=== PATIENT | female | born 1950 | race Caucasian/White ===

== ENCOUNTER → 2017-07-19 | Outpatient (CLI) | payer OTHER ==
[~2017-07-19] MED LIST: ATENOLOL 25MG T25 MG OR; FISHOIL; MAXIDE OR; MAXZIDE-25 MG1 EACH OR; PRILOSEC 20 MG20 MG OR; PROZAC 10 MG CA10 M1 OR; SLO-NIACIN250 MG OR; VITAMIN E400 UNIT OR; [UNRECOGNIZED DRUG - OTHER] OR
== END ==
LOC: RAD 00:24
DX: Z12.31 Encounter for screening mammogram for malignant neoplasm of breast (principal)

== ENCOUNTER → 2017-07-20 | Outpatient (CLI) | payer OTHER | LOC: ULTRA 11:27 | DX: N63.13 Unspecified lump in the right breast, lower outer quadrant (principal) ==

== ENCOUNTER → 2018-01-24 | Outpatient (CLI) | payer OTHER | LOC: RAD 01:09 | DX: N63.11 Unspecified lump in the right breast, upper outer quadrant (principal) ==

== ENCOUNTER → 2018-07-11 | Outpatient (CLI) | payer OTHER | LOC: RAD 09:41 | DX: R92.1 Mammographic calcification found on diagnostic imaging of breast (principal); R92.2 Inconclusive mammogram; R92.8 Other abnormal and inconclusive findings on diagnostic imaging of breast ==

== ENCOUNTER → 2019-07-20 | Outpatient (CLI) | payer OTHER | LOC: RAD 09:16 → BC 21:09 | DX: Z12.31 Encounter for screening mammogram for malignant neoplasm of breast (principal) ==

== ENCOUNTER → 2020-07-22 | Outpatient (CLI) | payer OTHER | LOC: BC 08:30 | PROVIDERS: ATTEND Family Medicine | DX: Z12.31 Encounter for screening mammogram for malignant neoplasm of breast (principal) ==

== ENCOUNTER → 2021-01-29 | Outpatient (CLI) | payer OTHER | LOC: RAD 12:28 | PROVIDERS: ATTEND Family Medicine | DX: N63.20 Unspecified lump in the left breast, unspecified quadrant (principal); R92.8 Other abnormal and inconclusive findings on diagnostic imaging of breast ==